=== PATIENT | male | born 1995 | race Caucasian/White ===

== ENCOUNTER 2022-06-02 21:29 | Emergency (ER) | payer SELFPAY ==
[~2022-06-02] VITALS: Ht 182.9 cm; Wt 95.5 kg
[2022-06-02 21:56] VITALS: BP 153/93
[2022-06-02] MEDS ORDERED: SULF1TAB45 PO (22:38)
[2022-06-02] MEDS ORDERED: sulfamethoxazole/trimethoprim DS (800/160mg) tablet PO ONE (22:40)
[2022-06-02] MEDS ORDERED: DOXYCYCLINE 100MG CAPSULE PO STA (22:46)
[2022-06-02] MEDS ORDERED: DOXY100C76 PO (22:47)
== END 2022-06-02 22:55 | disposition home or self-care (01) ==
LOC: ER 21:33
DX: B35.3 Tinea pedis (principal); Z88.2 Allergy status to sulfonamides; Z79.2 Long term (current) use of antibiotics
CPT/HCPCS: 99283

== ENCOUNTER 2023-08-27 08:31 | Emergency (ER) | payer SELFPAY ==
[~2023-08-27] VITALS: Ht 182.9 cm; Wt 83.6 kg
[2023-08-27 08:33] VITALS: BP 130/74; PULSE 70; RESP 18; TEMP 97.8; O2SAT 98
[2023-08-27] MEDS ORDERED: TERB30CR8 TP (09:53)
[2023-08-27] MEDS ORDERED: CLIN-97 PO (09:53)
== END 2023-08-27 10:17 | disposition home or self-care (01) ==
LOC: ER 08:31
DX: L03.115 Cellulitis of right lower limb (principal); B35.3 Tinea pedis; F17.200 Nicotine dependence, unspecified, uncomplicated; Z56.0 Unemployment, unspecified; Z79.2 Long term (current) use of antibiotics; Z79.899 Other long term (current) drug therapy
CPT/HCPCS: 99283